=== PATIENT | male | born 1945 | race Caucasian/White ===

== ENCOUNTER 2016-09-29 19:49 | Emergency (ER) | payer OTHER ==
[2016-09-29 19:58] VITALS: TEMP 97.5
[2016-09-29] MEDS ORDERED: LORAZEPAM 0.5 MG TAB PO ONE (19:58)
[2016-09-29] MEDS ORDERED: MECLIZINE 25 MG TAB PO ONE (19:58)
--- NOTE | 2016-09-29 20:04 | EDPRACDOC ---
- General Information Stated Complaint: WEAKNESS Time Seen by Provider: 09/29/16 19:56 Information Source: Patient Mode Of Arrival: Ambulance - History of Present Illness Onset: 1600 Exact Onset of Symptoms: Known Date Symptoms Started: 09/29/16 Time Symptoms Started: 16:00 HPI: Pt c/o dizziness described as room spinning, lightheaded, n/v x 10 episodes since dizziness started. Denies fever, vision changes, headache, earache, sore throat, congestion, cough, cp, sob, abd pain, changes in bowel or bladder, leg swelling, rash. Symptoms Started: Reports: Suddenly Symptoms Description: Constant Symptoms: Reports: Vertigo Symptom Severity: Reports: Unable to performs ADL's Associated signs and symptoms:: Reports: Nausea, Vomiting ED Past Medical History - History Reviewed Yes Nurses notes reviewed and agree except as marked - Social Medical History Smoking Status: Current status unknown ETOH: None Substance Abuse: None EDM Review of Systems - Review of Systems Constitutional: No Symptoms Reported. negative: Fever, Chills, Weakness, Fatigue, Loss of Appetite Eyes: No Symptoms Reported. negative: Redness, Blurred Vision, Double Vision, Discharge, Pain, Light Sensitive, Photophobia Ears: No Symptoms Reported. negative: Pain, Hearing Loss, Drainage, Ear Pulling Throat: No Symptoms Reported. negative: Pain, Swelling Nose: No Symptoms Reported. negative: Congestion, Bleeding, Discharge, Injection, Swelling, Deformity, Ecchymosis, Tender, Abrasion, Laceration Mouth: No Symptoms Reported. negative: Pain, Drooling Respiratory: No Symptoms Reported. negative: Cough, Brassy Cough, Barky Cough, Shortness of Breath, Wheezing, Hemoptysis Cardiovascular: No Symptoms Reported. negative: Chest Pain, Palpitations, Syncope, Edema, Orthopnea, PND, Skin Mottling, Cyanosis Gastrointestinal: Nausea, Vomiting Genitourinary: No Symptoms Reported. negative: Dysuria, Hematuria, Frequency, Discharge, Bleeding, Testicular Pain, Neurological: Dizziness Musculoskeletal: No Symptoms Reported. negative: Neck, Chestwall, Ribs, Back, Shoulder, Arm, Elbow, Forearm, Wrist, Hand, Pelvis, Hip, Femur, Knee, Leg, Ankle , Foot Integumentary: No Symptoms Reported. negative: Itching, Rash, Bruising, Wound Allergic/Immunologic: No Symptoms Reported. negative: Hives, Itching Hematologic: No Symptoms Reported. negative: Lymphadenopathy, Easy Bruising, Easy Bleeding Psychiatric: No Symptoms Reported. negative: Anxiety, Depression, Hallucinations, Insomnia, Suicidal - Physical Exam Constitutional: Alert Oriented to: Time, Person, Place Last recorded Vital Signs: Last Vital Signs Temp 97.5 F 09/29/16 19:57 Pulse 50 L 09/29/16 19:57 Resp 20 09/29/16 19:57 BP 207/85 H 09/29/16 19:57 Pulse Ox 96 09/29/16 19:57 Oxygen Pulse Oxygen Saturation 96 O2 Device Oxygen Flow Rate Fraction of Inspired Oxygen ( FIO2) - HEENT Head: Normal ( normocephalic) Eye Exam: Normal (PERRL, EOMI, Sclera white) Oropharynx: Normal (Pharynx:Moist without exudate,Gums-no swelling) Tympanic Membrane: Normal ENT EAC: Normal TMJ: Normal Nose: No Symptoms Reported (septum midline) Neck: Normal (FROM, trachea at midline) - Respiratory/Cardiovascular Respiratory: Normal - CTA (BBS clear to auscultation without adventitious sounds ) Cardiovascular: Bradycardia - GI Auscultation: Normal (NABS) Palpation: Normal (Soft,No rebound or guarding, non distended) Tenderness: Non tender - Musculoskeletal Back: Normal (Non-Tender) Extremities: Normal (Normal tone, Pulses 2+ No cyanosis or edema, FROM) - Integumentary Skin: Normal, Warm, Dry Lymphatics: Normal (no adenopathy) - Neurologic Memory Impaired: Normal Motor Function: Normal (Normal tone, Pulses 2+ No cyanosis or edema, FROM) Cranial Nerve: Normal (CN II-X11 intact sensation, strength 5/5) Cerebellar: Normal Mood Description: Normal Perception: Normal NIH Stroke Scale Initial Evaluation Level of Consciousness: Alert LOC- Question: Answers Both Correctly LOC Commands: Both Task Correctly Best Gaze: Normal Visual: No Visual Loss Facial Palsy: Normal Movement Motor Arm LEFT: No Drift Motor Arm RIGHT: No Drift Motor Leg LEFT: No Drift Motor Leg RIGHT: No Drift Limb Ataxia: Absent Sensory: Normal Best Language: No Aphasia Dysarthria: Normal Extinction and Inattention: No Abnormality (Neglect) Score: 0out of42 - Differential Diagnosis CVA, Dehydration, Electrolyte disorder, Hypoglycemia, TIA, Vertigo
--- NOTE | 2016-09-29 20:04 | EDPRACDOC ---
- History of Present Illness Onset: THIS AFTERNOON Exact Onset of Symptoms: Unknown Date Symptoms Started: 09/29/16 Symptoms Started: Reports: Gradually, At Rest, With light exertion Weakness: Bilateral: Generalized Symptoms: Reports: Vertigo, Weak Symptom Severity: Reports: Unable to performs ADL's Relevant History of: Denies: Electrolyte disorder Associated signs and symptoms:: Reports: Nausea. Denies: GI Bleed, Chest pain, Diarrhea, Fever, Headache, Palpitations, Vomiting <Tia Garcia N - Last Filed: 09/29/16 20:02> - History of Present Illness HPI: Pt c/o dizziness described as room spinning, lightheaded, n/v x 10 episodes since dizziness started. Denies fever, vision changes, headache, earache, sore throat, congestion, cough, cp, sob, abd pain, changes in bowel or bladder, leg swelling, rash. Symptoms Description: Constant Associated signs and symptoms:: Reports: Nausea, Vomiting <Lea Sultana - Last Filed: 09/29/16 23:28> - General Information Stated Complaint: WEAKNESS Time Seen by Provider: 09/29/16 19:56 Home Medications: Home Medications Lorazepam [Ativan] 0.5 mg PO TID PRN #20 tablet 09/29/16 Meclizine HCl [Antivert] 25 mg PO Q8H PRN #30 tab 09/29/16 Allergies/Adverse Reactions: Allergies Allergy/AdvReac Type Severity Reaction Status Date / Time No Known Allergies Allergy Verified 09/29/16 20:18 ED Past Medical History - Patient Medical History Cardiac History: Reports: Hypertension, CABG Psychological History: Reports: Anxiety Systemic History: Reports: Diabetes Additional Past Surgical History: LEFT NEPHRECTOMY FOR RENAL CELL CARCINOMA <Tia Garcia N - Last Filed: 09/29/16 20:02> EDM Review of Systems - Review of Systems ROS Negative Except as Marked: Yes All systems reviewed and were negative except as marked <Tia Gacria - Last Filed: 09/29/16 20:02> - Physical Exam Constitutional: Alert (Awake), No apparent distress Oriented to: Time, Person, Place Last recorded Vital Signs: Last Vital Signs Temp 97.5 F 09/29/16 19:57 Pulse 50 L 09/29/16 19:57 Resp 20 09/29/16 19:57 BP 207/85 H 09/29/16 19:57 Pulse Ox 96 09/29/16 19:57 Oxygen Pulse Oxygen Saturation 96 O2 Device Oxygen Flow Rate Fraction of Inspired Oxygen ( FIO2) - HEENT Head: Normal ( normocephalic) Eye Exam: Normal (PERRL, EOMI, Sclera white) Oropharynx: Normal (Pharynx:Moist without exudate,Gums-no swelling) Tympanic Membrane: Normal ENT EAC: Normal TMJ: Normal Nose: No Symptoms Reported (septum midline) Neck: Normal (FROM, trachea at midline) - Respiratory/Cardiovascular Respiratory: Normal - CTA (BBS clear to auscultation without adventitious sounds ) Cardiovascular: Bradycardia. negative: Diastolic murmur, Systolic murmur - GI Auscultation: Normal (NABS) Palpation: Normal (Soft,No rebound or guarding, non distended) Tenderness: Non tender Yin's Sign: Negative - Musculoskeletal Back: Normal (Non-Tender) Extremities: Normal (Normal tone, Pulses 2+ No cyanosis or edema, FROM) - Integumentary Skin: Normal, Warm, Dry Lymphatics: Normal (no adenopathy) - Neurologic Memory Impaired: Normal Motor Function: Normal (Normal tone, Pulses 2+ No cyanosis or edema, FROM) Cranial Nerve: Normal (CN II-X11 intact sensation, strength 5/5) Cerebellar: Normal Mood Description: Normal Perception: Normal <Tia Garcia - Last Filed: 09/29/16 20:02> - Physical Exam Last recorded Vital Signs: Last Vital Signs Temp 97.5 F 09/29/16 19:57 Pulse 50 L 09/29/16 19:57 Resp 20 09/29/16 19:57 BP 207/85 H 09/29/16 19:57 Pulse Ox 96 09/29/16 19:57 Oxygen Pulse Oxygen Saturation 96 O2 Device Oxygen Flow Rate Fraction of Inspired Oxygen ( FIO2) <Lea Sultana - Last Filed: 09/29/16 23:28> NIH Stroke Scale Re-evaluation 1 Level of Consciousness: Alert LOC- Question: Answers Both Correctly LOC Commands: Both Task Correctly Best Gaze: Normal Visual: No Visual Loss Facial Palsy: Normal Movement Motor Arm LEFT: No Drift Motor Arm RIGHT: No Drift Motor Leg LEFT: No Drift Motor Leg RIGHT: No Drift Limb Ataxia: Absent Sensory: Normal Best Language: No Aphasia Dysarthria: Normal Extinction and Inattention: No Abnormality (Neglect) Score: 0out of42 <Tia Garcia - Last Filed: 09/29/16 20:02> Re-evaluation 1 Level of Consciousness: Alert LOC- Question: Answers Both Correctly LOC Commands: Both Task Correctly Best Gaze: Normal Visual: No Visual Loss Facial Palsy: Normal Movement Motor Arm LEFT: No Drift Motor Arm RIGHT: No Drift Motor Leg LEFT: No Drift Motor Leg RIGHT: No Drift Limb Ataxia: Absent Sensory: Normal Best Language: No Aphasia Dysarthria: Normal Extinction and Inattention: No Abnormality (Neglect) Score: 0out of42 <Ceci Sultanae E - Last Filed: 09/29/16 23:28> - Results 09/29/16 20:30 09/29/16 20:30 09/29/16 23:27 Laboratory Results - last 24 hr 09/29/16 09/29/16 09/29/16 20:30 20:30 20:30 WBC 10.6 RBC 4.71 Hgb 14.0 Hct 41.8 L MCV 89 MCH 29.8 MCHC 33.6 RDW 13.8 Plt Count 116 L MPV 9.9 Neut % (Auto) 87.4 H Lymph % (Auto) 6.0 L [place] % (Auto) 4.8 Eos % (Auto) 0.6 Baso % (Auto) 1.2 Absolute Neuts (auto) 9.22 H Absolute Lymphs (auto) 0.64 L PT 11.4 H INR 1.1 APTT 23.1 Sodium 136 L Potassium 4.2 Chloride 98 Carbon Dioxide 26 Anion Gap 16 BUN 28 H Creatinine 1.10 Estimated GFR (MDRD) > 60 Glucose 271 H Calculated Osmolality 278 Calcium 9.1 Total Bilirubin 0.7 AST 21 ALT 37 Alkaline Phosphatase 69 Troponin I < 0.01 Total Protein 7.5 Albumin 4.2 Urine Color Urine Clarity Urine pH Ur Specific [place] Urine Protein Urine Glucose (UA) Urine Ketones Urine Occult Blood Urine Nitrite Urine Bilirubin Urine Urobilinogen Ur Leukocyte Esterase Urine RBC Urine WBC Urine Bacteria Urine Mucus 09/29/16 21:02 WBC RBC Hgb Hct MCV MCH MCHC RDW Plt Count MPV Neut % (Auto) Lymph % (Auto) [place] % (Auto) Eos % (Auto) Baso % (Auto) Absolute Neuts (auto) Absolute Lymphs (auto) PT INR APTT Sodium Potassium Chloride Carbon Dioxide Anion Gap BUN Creatinine Estimated GFR (MDRD) Glucose Calculated Osmolality Calcium Total Bilirubin AST ALT Alkaline Phosphatase Troponin I Total Protein Albumin Urine Color Yellow Urine Clarity Clear Urine pH 5.0 Ur Specific [place] 1.015 Urine Protein 1+ H Urine Glucose (UA) 2+ Urine Ketones Neg Urine Occult Blood Neg Urine Nitrite Neg Urine Bilirubin Neg Urine Urobilinogen <2.0 Ur Leukocyte Esterase Neg Urine RBC 0-2 Urine WBC 0-2 Urine Bacteria Few Urine Mucus Occ - EKG EKG #1 EKG Time: 20:05 Rate: bpm: 48 [place]: LAD Rhythm: SB Block: 1, AVB ST: Nonsp Comparison: 06/29/11 - Diagnostic Imaging Head Image interpreted by: Radiologist IMPRESSION: No acute intracranial hemorrhage. Age-related chronic microvascular ischemic disease. If symptoms persist and there are no contraindications, MRI may provide better evaluation if clinically indicated. Chest Image interpreted by: Radiologist IMPRESSION: Stable cardiomegaly and pulmonary vascular congestion. Interval placement of RIGHT chest Port-A-Cath, distal tip projecting cavoatrial junction. No pneumothorax. <Lea Sultana E - Last Filed: 09/29/16 23:28> <Tia Garcia - Last Filed: 09/29/16 20:02> Decision Time to Discharge: 23:27 - Departure Disposition: Home Education/Counseling Given To: Patient, Family Member Education/Counseling Given Regarding: Diagnosis, Treatment, Follow Up <Lea Sultana - Last Filed: 09/29/16 23:28> - Departure Condition: Good Final Diagnosis: Vertigo Instructions: Vertigo (ED), Benign Paroxysmal Positional Vertigo (ED) Referrals: None,No Provider [Primary Care Provider] - One Week Luis Carlos Mckeon DO [Staff Physician] - One Week Prescriptions: Lorazepam [Ativan] 0.5 mg PO TID PRN #20 tablet PRN Reason: Vertigo Meclizine HCl [Antivert] 25 mg PO Q8H PRN #30 tab PRN Reason: Vertigo Additional Instructions: Return for worse or different symptoms.
[2016-09-29 20:07] VITALS: BMI 43.3
[2016-09-29 20:46] LABS: AUTOMATED BASOPHIL 1.2 % (0-2); AUTOMATED EOSINOPHIL 0.6 % (0-5); AUTOMATED MONOCYTE 4.8 % (3-10); AUTOMATED NEUTROPHIL 87.4 % (45-76); MPV 9.9 fL (7.4-10.4)
[2016-09-29 21:00] LABS: BLOOD UREA NITROGEN 28 MG/DL (9-20); CALCIUM 9.1 MG/DL (8.4-10.2); CALCULATED OSMOLALITY 278 MOs/Kg (270-290); CHLORIDE 98 mEq/L (98-107); GLUCOSE 271 MG/DL (70-99); SODIUM LEVEL 136 mEq/L (137-146); TOTAL PROTEIN 7.5 G/DL (6.3-8.2)
[2016-09-29 21:01] LABS: PARTIAL THROMB. TIME 23.1 SEC (22-35); PT-INR 1.1
[2016-09-29] MEDS ORDERED: HEPARIN 500 UNITS/5 ML (100 UNITS/ML) SYR FLUSH ONE (21:05)
--- NOTE | 2016-09-29 21:14 | DIRPT ---
CLINICAL DATA: Dizziness and weakness. Recent placement of port. EXAM: PORTABLE CHEST 1 VIEW COMPARISON: Chest radiograph July 07, 2011 FINDINGS: Cardiac silhouette appears moderately enlarged unchanged. Calcified aortic knob. Status post median sternotomy for CABG. Similar pulmonary vascular congestion without pleural effusion or focal consolidation. No pneumothorax. Interval placement of single-lumen RIGHT chest Port-A-Cath with distal tip projecting cavoatrial junction. No pneumothorax. Soft tissue planes and included osseous structure nonsuspicious. IMPRESSION: Stable cardiomegaly and pulmonary vascular congestion. Interval placement of RIGHT chest Port-A-Cath, distal tip projecting cavoatrial junction. No pneumothorax. Electronically Signed By: Alex Cobb M.D. On: 09/29/2016 21:12
[2016-09-29 21:28] LABS: LEUKOCYTES/URINE NEG (NEGATIVE); NITRITE/URINE NEG (NEGATIVE); RBC/URINE 0-2 (0-2); URINE OCCULT BLOOD NEG (NEG/TRACE); WBC/URINE 0-2 (0-2)
--- NOTE | 2016-09-29 21:39 | DIRPT ---
CLINICAL DATA: A 70-year-old male with dizziness, weakness, and nausea. History of lymphoma. EXAM: CT HEAD WITHOUT CONTRAST TECHNIQUE: Contiguous axial images were obtained from the base of the skull through the vertex without intravenous contrast. COMPARISON: None. FINDINGS: The ventricles and sulci are appropriate size for the patient's age. Periventricular and deep white matter hypodensities represent chronic microvascular ischemic changes. There is no intracranial hemorrhage. No mass effect or midline shift identified. The visualized paranasal sinuses and mastoid air cells are well aerated. The calvarium is intact. IMPRESSION: No acute intracranial hemorrhage. Age-related chronic microvascular ischemic disease. If symptoms persist and there are no contraindications, MRI may provide better evaluation if clinically indicated. Electronically Signed By: Jeremy Frias M.D. On: 09/29/2016 21:37
[2016-09-29 23:32] VITALS: BP 156/67
[2016-09-30 00:03] VITALS: PULSE 61
== END 2016-09-30 00:01 | disposition home or self-care (01) ==
LOC: ED 19:49
DX: R42 Dizziness and giddiness (principal)
CPT/HCPCS: 36415; 70450; 71010; 80053; 81001; 84484; 85025; 85610; 85730; 93005; 99285; J1642; J3490